=== PATIENT | male | born 1945 | race Caucasian/White ===

== ENCOUNTER 2020-12-25 21:53 | Emergency (ER) | payer MEDICARE, OTHER ==
[~2020-12-25 21:53] MED LIST: BACTRIM DS TAB1 EACH PO; CYCLOBENZAPRINE10 MG PO; ETODOLAC500 MG PO; FLONASE ALLER15.8 ML; NORCO 5-325 TA1 EACH PO; SUDAFED30 MG PO; TESSALON PERLE100 M1 PO; ULTRAM50 MG PO; ZYRTEC10 M3 PO
[2020-12-25 22:19] LABS: BILIRUBIN NEGATIVE (NEGATIVE); BLOOD 3+ Ery/uL (NEGATIVE); CLARITY CLEAR (CLEAR); COLOR YELLOW (YELLOW); GLUCOSE (U) NORMAL (NORMAL); LEUKOCYTES NEGATIVE Leu/uL (NEGATIVE); NITRITE NEGATIVE (NEGATIVE); PROTEIN 1+ mg/dL (NEGATIVE); SPECIFIC GRAVITY 1.025 (1.001-1.030); pH 6.5 (5.0-9.0)
[2020-12-25 22:26] LABS: URINARY WBC RARE
[2020-12-25 22:27] LABS: BACTERIA TRACE; URINARY RBC TNTC
[2020-12-25 22:37] LABS: BASOPHIL 1.1 % (0-2); EOSINOPHIL 5.4 % (0-7); HCT 45.6 % (42.0-52.0); LYMPHOCYTE 28.2 % (15-48); MCHC 32.9 g/dL (32.0-36.0); MCV 97.2 fL (78.0-100.0); MONOCYTE 10.9 % (0-12); MPV 10.1 fL (6.0-9.5); NEUTROPHIL 54.2 % (41-80); NRBC 0; PLT 178 K/uL (150-400); RBC 4.69 M/uL (4.70-6.00); RDW 12.1 % (11.5-14.0); WBC 6.2 K/uL (4.0-10.5)
[2020-12-25 22:55] LABS: ALBUMIN 3.5 g/dL (3.4-5.0); BILIRUBIN - TOTAL 0.3 mg/dL (0.2-1.0); BUN/CREAT RATIO (CALC) 12.4 RATIO; CREATININE 1.61 mg/dL (0.67-1.17); GLOBULIN (CALCULATION) 3.5 g/dL; POTASSIUM 4.2 mmol/L (3.5-5.1)
== END 2020-12-26 01:44 | disposition home or self-care (01) ==
LOC: FER 21:53
PROVIDERS: Emergency Medicine
DX: R31.9 Hematuria, unspecified (principal); R30.0 Dysuria; M88.88 Osteitis deformans of other bones; Z87.442 Personal history of urinary calculi
CPT/HCPCS: 36415; 80053; 81001; 85025; J7030

== ENCOUNTER 2021-12-10 00:25 | Emergency (ER) | payer MEDICARE, OTHER ==
[2021-12-10] MEDS ORDERED: MEDROL 4MG DOSEP4 MG PO (02:29)
== END 2021-12-10 02:42 | disposition home or self-care (01) ==
LOC: FER 00:25
DX: L50.0 Allergic urticaria (principal); T36.3X5A Adverse effect of macrolides, initial encounter; I10 Essential (primary) hypertension; Z88.1 Allergy status to other antibiotic agents; Z88.5 Allergy status to narcotic agent; Z88.8 Allergy status to other drugs, medicaments and biological substances
CPT/HCPCS: J1200; J2930